=== PATIENT | male | born 1945 | race Caucasian/White ===

== ENCOUNTER 2017-06-30 09:26 | Emergency (ER) | payer OTHER ==
[~2017-06-30] VITALS: Ht 165.1 cm; Wt 87.1 kg
[2017-06-30 09:26] VITALS: BP_SYST 153
--- NOTE | 2017-06-30 09:26 | NUR ---
BROUGHT BACK TO BED #7 AND TRIAGED. REPORT GIVEN TO MARISELA
--- NOTE | 2017-06-30 09:40 | NUR ---
Pt complains of cough with no phlegm for the past 3 days. Pt complains of body aches and stomach pain. Pt denies fever, n/v, or diarrhea. Daughter at bedside translating for patient. No other injuries/complains per pt or noted.
--- NOTE | 2017-06-30 09:40 | NUR ---
Pt went to radiology in stable condition.
--- NOTE | 2017-06-30 09:45 | NUR ---
Pt returned from radiology in stable condition.
--- NOTE | 2017-06-30 10:19 | NUR ---
ER at bedside examining patient.
[2017-06-30] MEDS ORDERED: ALBUTEROL SULFATE 0.083% 2.5 MG/3 ML VIAL.NEB INH ONE (10:30)
[2017-06-30] MEDS ORDERED: LEVOFLOXACIN 500 MG TABLET PO ONE (10:30)
--- NOTE | 2017-06-30 10:30 | NUR ---
antibiotic was given PO, no noted adverse reaction, will continue to monitor.
[2017-06-30 11:04] VITALS: BP_SYST 135
--- NOTE | 2017-06-30 11:04 | NUR ---
Patient given written and verbal discharge instructions and verbalizes understanding. ER MD discussed with patient the results and treatment provided. Patient in stable condition. ID arm band removed. Rx of Cipro, Promethazine, Albuterol given. Patient educated on pain management and to follow up with PMD. Pain Scale 0. Opportunity for questions provided and answered.
== END 2017-06-30 11:04 | disposition home or self-care (01) ==
LOC: SED 09:26
DX: J40 Bronchitis, not specified as acute or chronic (principal); R10.9 Unspecified abdominal pain; E11.9 Type 2 diabetes mellitus without complications; I10 Essential (primary) hypertension
CPT/HCPCS: 71020-TC; 94640; 99284

== ENCOUNTER 2017-09-23 11:19 | Emergency (ER) | payer OTHER ==
[~2017-09-23] VITALS: Ht 165.1 cm; Wt 87.1 kg
[2017-09-23 11:24] VITALS: BP_SYST 128
[2017-09-23 11:40] VITALS: BP_SYST 137
== END 2017-09-23 11:40 | disposition home or self-care (01) ==
LOC: SED 11:19
DX: J02.8 Acute pharyngitis due to other specified organisms (principal); B96.89 Other specified bacterial agents as the cause of diseases classified elsewhere; E11.9 Type 2 diabetes mellitus without complications; I10 Essential (primary) hypertension; E78.00 Pure hypercholesterolemia, unspecified
CPT/HCPCS: 99283; J7030

== ENCOUNTER 2018-02-13 16:01 | Emergency (ER) | payer OTHER ==
[~2018-02-13] VITALS: Ht 160 cm; Wt 88.0 kg
[2018-02-13 16:09] VITALS: BP_SYST 114
[2018-02-13 18:00] VITALS: BP_SYST 112
== END 2018-02-13 18:00 | disposition home or self-care (01) ==
LOC: SED 16:01
DX: S16.1XXA Strain of muscle, fascia and tendon at neck level, initial encounter (principal); I10 Essential (primary) hypertension; E11.9 Type 2 diabetes mellitus without complications; E78.5 Hyperlipidemia, unspecified; M10.9 Gout, unspecified; X58.XXXA Exposure to other specified factors, initial encounter; Y93.89 Activity, other specified; Y92.89 Other specified places as the place of occurrence of the external cause; Y99.8 Other external cause status
CPT/HCPCS: 99283

== ENCOUNTER 2018-11-06 15:47 | Outpatient (CLI) | payer OTHER | END 2018-11-06 19:16 | disposition home or self-care (01) | LOC: SRD 15:47 | PROVIDERS: ATTEND Internal Medicine | DX: M17.12 Unilateral primary osteoarthritis, left knee (principal) | CPT/HCPCS: 73564 ==

== ENCOUNTER 2021-02-13 23:40 | Inpatient (IN) | payer OTHER ==
[~2021-02-13] VITALS: Ht 165.1 cm; Wt 88.5 kg
[2021-02-13 23:45] VITALS: BP_SYST 142
[2021-02-14 00:36] LABS: ANION GAP 8 (5-15); CALCIUM 8.5 mg/dL (8.4-11.0); CHLORIDE 101 mmol/L (98-107); CREATININE 1.62 mg/dL (0.55-1.30); GLUCOSE 224 mg/dL (70-99); SODIUM SERUM 134 mmol/L (136-145); UREA NITROGEN, BLOOD 25 mg/dL (8-21)
[2021-02-14 00:39] LABS: BASOPHILS # (AUTO) 0.1 K/uL (0.0-0.2); BASOPHILS % (AUTO) 0.6 % (0.0-2.0); EOSINOPHILS # (AUTO) 0.1 K/uL (0.0-0.4); EOSINOPHILS % (AUTO) 0.5 % (0.0-4.0); HEMATOCRIT 39.6 % (36-54); HEMOGLOBIN 13.2 g/dL (14.0-18.0); LYMPHOCYTES # (AUTO) 1.4 K/uL (1.0-5.5); LYMPHOCYTES % (AUTO) 13.8 % (20.5-51.5); MEAN CORPUSCULAR HEMOGLOBIN 31 pg (27-31); MEAN CORPUSCULAR HGB CONC 33 % (32-36); MEAN CORPUSCULAR VOLUME 92 fL (79.0-98.0); MONOCYTES # (AUTO) 1.4 K/uL (0.0-1.0); MONOCYTES % (AUTO) 13.2 % (1.7-9.3); NEUTROPHILS # (AUTO) 7.4 K/uL (1.8-7.7); NEUTROPHILS % (AUTO) 71.9 % (40.0-70.0); PLATELET COUNT (AUTO) 128 K/uL (130-430); RED CELL DISTRIBUTION WIDTH 14.6 % (9.0-15.0); WHITE BLOOD COUNT (AUTO) 10.3 K/uL (4.8-10.8)
[2021-02-14 00:44] LABS: ALANINE AMINOTRANSFERASE 41 U/L (12-78); ALBUMIN 3.4 g/dL (3.4-4.8); ASPARTATE AMINOTRANSFERASE 18 U/L (10-37); TOTAL BILIRUBIN 1.1 mg/dL (0.0-1.0)
[2021-02-14] MEDS ORDERED: IPRATROPIUM/ALBUTEROL SULFATE 3 ML AMPUL.NEB (DUONEB) INH ONE (02:00)
[2021-02-14] MEDS ORDERED: methylPREDNISolone SOD SUCC/PF 62.5 MG/ML VIAL IVP ONE (02:45)
[2021-02-14] MEDS ORDERED: NALOXONE HCL 0.4 MG/ML AMP (NARCAN) IVP PRN (08:30)
[2021-02-14] MEDS ORDERED: HYDROcodone/ACETAMIN 5-325 MG TAB (NORCO/ VICODIN) PO PRN (08:30)
[2021-02-14] MEDS ORDERED: ALBUTEROL SULFATE 0.083% 2.5 MG/3 ML VIAL.NEB INH PRN (08:30)
[2021-02-14 09:00] VITALS: BP_SYST 124
[2021-02-14 09:06] LABS: BASOPHILS % (AUTO) 0.2 % (0.0-2.0); HEMATOCRIT 40.3 % (36-54); HEMOGLOBIN 13.1 g/dL (14.0-18.0); LYMPHOCYTES # (AUTO) 1.3 K/uL (1.0-5.5); LYMPHOCYTES % (AUTO) 11.4 % (20.5-51.5); MEAN CORPUSCULAR HEMOGLOBIN 30 pg (27-31); MEAN CORPUSCULAR HGB CONC 33 % (32-36); MEAN CORPUSCULAR VOLUME 93 fL (79.0-98.0); MONOCYTES # (AUTO) 0.1 K/uL (0.0-1.0); MONOCYTES % (AUTO) 1.2 % (1.7-9.3); NEUTROPHILS # (AUTO) 10.1 K/uL (1.8-7.7); NEUTROPHILS % (AUTO) 87.2 % (40.0-70.0); PLATELET COUNT (AUTO) 150 K/uL (130-430); RED BLOOD CELL COUNT(AUTO) 4.35 MIL/uL (4.2-6.2); RED CELL DISTRIBUTION WIDTH 14.9 % (9.0-15.0); WHITE BLOOD COUNT (AUTO) 11.6 K/uL (4.8-10.8)
[2021-02-14 09:20] LABS: ALANINE AMINOTRANSFERASE 40 U/L (12-78); ALBUMIN 3.2 g/dL (3.4-4.8); ANION GAP 12 (5-15); ASPARTATE AMINOTRANSFERASE 20 U/L (10-37); CALCIUM 8.7 mg/dL (8.4-11.0); CHLORIDE 101 mmol/L (98-107); CREATININE 1.62 mg/dL (0.55-1.30); GLUCOSE 315 mg/dL (70-99); POTASSIUM 5.5 mmol/L (3.5-5.1); SODIUM SERUM 134 mmol/L (136-145); TOTAL BILIRUBIN 1.2 mg/dL (0.0-1.0); UREA NITROGEN, BLOOD 26 mg/dL (8-21)
[2021-02-14] MEDS ORDERED: GLUCOSE (DEXTROSE) ORAL GEL -Adults PO PRN (09:30)
[2021-02-14] MEDS ORDERED: D5W 1,000 ML IV PRN (09:30)
[2021-02-14] MEDS ORDERED: DEXTROSE 50%-WATER 50 ML DISP.SYRIN IVP PRN (09:30)
[2021-02-14 09:39] VITALS: BP_SYST 124
[2021-02-14] MEDS: cefTRIAXone 1 GM IVPB PREMIX 50 ML IV SCH (10:16)
[2021-02-14] MEDS: AZITHROMYCIN 500 MG in NS 250 ML IV SCH (10:16)
[2021-02-14] MEDS: ENOXAPARIN SODIUM 40 MG/0.4 ML SYRINGE SUBCUT SCH (10:19)
[2021-02-14] MEDS ORDERED: SIMV80TA88 PO (12:26)
[2021-02-14] MEDS ORDERED: DICY10SO PO (12:26)
[2021-02-14] MEDS ORDERED: SITA100T11 PO (12:26)
[2021-02-14] MEDS ORDERED: ALLO100T PO (12:26)
[2021-02-14] MEDS ORDERED: MONT10TA33 PO (12:26)
[2021-02-14] MEDS ORDERED: GLIP10TA21 PO (12:26)
[2021-02-14] MEDS ORDERED: METF-518 PO (12:26)
[2021-02-14] MEDS ORDERED: LISI40TA13 PO (12:26)
[2021-02-14] MEDS: INSULIN REGULAR, HUMAN 100 UNITS/ML, 10 ML VIAL (humuLIN R) SUBCUT PRN ×3 (12:32→20:38)
[2021-02-14 14:20] VITALS: BP_SYST 124
[2021-02-14 16:00] VITALS: BP_SYST 130
[2021-02-14] MEDS: NACL 0.9% 1,000 ML IV SCH (19:54)
[2021-02-14 20:05] VITALS: BP_SYST 124
[2021-02-14] MEDS: FAMOTIDINE PF 20 MG/2 ML VIAL IVP SCH (20:29)
[2021-02-14] MEDS: methylPREDNISolone SOD SUCC 40 MG/ML VIAL IVP SCH (20:29)
[2021-02-15] VITALS: BP_SYST 153
[2021-02-15] MEDS: INSULIN REGULAR, HUMAN 100 UNITS/ML, 10 ML VIAL (humuLIN R) SUBCUT PRN ×4 (06:01→20:57)
[2021-02-15 07:24] LABS: ALANINE AMINOTRANSFERASE 32 U/L (12-78); ALBUMIN 2.8 g/dL (3.4-4.8); ANION GAP 9 (5-15); ASPARTATE AMINOTRANSFERASE 14 U/L (10-37); CALCIUM 8.7 mg/dL (8.4-11.0); CHLORIDE 105 mmol/L (98-107); CREATININE 1.35 mg/dL (0.55-1.30); GLUCOSE 260 mg/dL (70-99); POTASSIUM 4.9 mmol/L (3.5-5.1); SODIUM SERUM 137 mmol/L (136-145); UREA NITROGEN, BLOOD 32 mg/dL (8-21)
[2021-02-15 07:26] LABS: BASOPHILS % (AUTO) 0.1 % (0.0-2.0); HEMATOCRIT 37.6 % (36-54); HEMOGLOBIN 12.3 g/dL (14.0-18.0); LYMPHOCYTES # (AUTO) 1.2 K/uL (1.0-5.5); LYMPHOCYTES % (AUTO) 8.7 % (20.5-51.5); MEAN CORPUSCULAR HEMOGLOBIN 30 pg (27-31); MEAN CORPUSCULAR HGB CONC 33 % (32-36); MEAN CORPUSCULAR VOLUME 92 fL (79.0-98.0); MONOCYTES # (AUTO) 0.8 K/uL (0.0-1.0); MONOCYTES % (AUTO) 5.4 % (1.7-9.3); NEUTROPHILS # (AUTO) 12.1 K/uL (1.8-7.7); NEUTROPHILS % (AUTO) 85.8 % (40.0-70.0); PLATELET COUNT (AUTO) 152 K/uL (130-430); RED BLOOD CELL COUNT(AUTO) 4.08 MIL/uL (4.2-6.2); RED CELL DISTRIBUTION WIDTH 14.7 % (9.0-15.0); WHITE BLOOD COUNT (AUTO) 14.1 K/uL (4.8-10.8)
[2021-02-15 07:46] LABS: TOTAL BILIRUBIN 0.5 mg/dL (0.0-1.0)
[2021-02-15 08:00] VITALS: BP_SYST 129
[2021-02-15] MEDS: methylPREDNISolone SOD SUCC 40 MG/ML VIAL IVP SCH ×2 (08:26→20:45)
[2021-02-15] MEDS: cefTRIAXone 1 GM IVPB PREMIX 50 ML IV SCH (08:26)
[2021-02-15] MEDS: ENOXAPARIN SODIUM 40 MG/0.4 ML SYRINGE SUBCUT SCH (08:29)
[2021-02-15] MEDS: AZITHROMYCIN 500 MG in NS 250 ML IV SCH (10:12)
[2021-02-15 12:00] VITALS: BP_SYST 125
[2021-02-15] MEDS: NACL 0.9% 1,000 ML IV SCH (14:47)
[2021-02-15 16:00] VITALS: BP_SYST 128
[2021-02-15 20:00] VITALS: BP_SYST 137
[2021-02-15] MEDS: FAMOTIDINE PF 20 MG/2 ML VIAL IVP SCH (20:45)
[2021-02-16 04:00] VITALS: BP_SYST 139
[2021-02-16] MEDS: INSULIN REGULAR, HUMAN 100 UNITS/ML, 10 ML VIAL (humuLIN R) SUBCUT PRN ×2 (06:00→12:27)
[2021-02-16] MEDS: cefTRIAXone 1 GM IVPB PREMIX 50 ML IV SCH (08:54)
[2021-02-16] MEDS: methylPREDNISolone SOD SUCC 40 MG/ML VIAL IVP SCH (08:54)
[2021-02-16] MEDS: ENOXAPARIN SODIUM 40 MG/0.4 ML SYRINGE SUBCUT SCH (08:57)
[2021-02-16] MEDS: AZITHROMYCIN 500 MG in NS 250 ML IV SCH (10:28)
[2021-02-16 12:14] VITALS: BP_SYST 128
[2021-02-16] MEDS ORDERED: ALBU2.5V7 INH (15:43)
[2021-02-16] MEDS ORDERED: MED4 PO (15:45)
[2021-02-16] MEDS ORDERED: ZIT250 PO (16:01)
[2021-02-16 16:19] VITALS: BP_SYST 148
[2021-02-16 17:02] VITALS: BP_SYST 148
== END 2021-02-16 17:45 | disposition home health service (06) | DRG 189 ==
LOC: SED 23:40 → STU 02-14 04:51
PROVIDERS: ADMIT Internal Medicine Hospice and Palliative Medicine; ATTEND Internal Medicine Hospice and Palliative Medicine
DX: J96.01 Acute respiratory failure with hypoxia (principal); E44.0 Moderate protein-calorie malnutrition; J44.1 Chronic obstructive pulmonary disease with (acute) exacerbation; J44.0 Chronic obstructive pulmonary disease with (acute) lower respiratory infection; M10.9 Gout, unspecified; I10 Essential (primary) hypertension; E11.9 Type 2 diabetes mellitus without complications; E78.5 Hyperlipidemia, unspecified; M19.90 Unspecified osteoarthritis, unspecified site; T38.0X5A Adverse effect of glucocorticoids and synthetic analogues, initial encounter; Z20.822 Contact with and (suspected) exposure to COVID-19; G47.33 Obstructive sleep apnea (adult) (pediatric); J20.9 Acute bronchitis, unspecified; Z83.3 Family history of diabetes mellitus; Y92.89 Other specified places as the place of occurrence of the external cause; Z68.32 Body mass index [BMI] 32.0-32.9, adult
CPT/HCPCS: 36415; 36600; 71045; 80053; 82803-TC; 82962; 83036; 83880; 84484; 85025; 85379; 93005; 93306; 94640; 96374; 99291; G0378; J0456; J0696; J1030; J1650; J1815; J2930; J3490; J7030; J7050

== ENCOUNTER 2023-10-02 18:59 | Emergency (ER) | payer OTHER ==
[~2023-10-02] VITALS: Ht 160 cm; Wt 80.7 kg
[~2023-10-02 18:59] MED LIST: ALBU2.5V7 INH; ALLO100T PO; DICY10SO PO; GLIP10TA21 PO; LISI40TA13 PO; MED4 PO; METF-518 PO; MONT-40 PO; SIMV80TA88 PO; SITA100T11 PO; ZIT250 PO
[2023-10-02 19:56] VITALS: BP_SYST 146; PULSE 85; RESP 18; TEMP 98; O2SAT 97
== END 2023-10-02 21:20 | disposition left against medical advice (07) ==
LOC: SED 18:59
DX: S00.83XA Contusion of other part of head, initial encounter (principal); S10.83XA Contusion of other specified part of neck, initial encounter; E11.9 Type 2 diabetes mellitus without complications; I10 Essential (primary) hypertension; Z79.899 Other long term (current) drug therapy; V49.40XA Driver injured in collision with unspecified motor vehicles in traffic accident, initial encounter; Y93.89 Activity, other specified; Y92.89 Other specified places as the place of occurrence of the external cause; Y99.8 Other external cause status
CPT/HCPCS: 70450-TC; 72125-TC; 76376; 99284

== ENCOUNTER 2023-10-12 12:17 | Inpatient (IN) | payer OTHER ==
[~2023-10-12] VITALS: Ht 167.6 cm; Wt 85.7 kg
[2023-10-12 12:26] VITALS: BP_SYST 94; PULSE 62; RESP 19; TEMP 98; O2SAT 95
[2023-10-12 13:54] LABS: BASOPHILS # (AUTO) 0.1 K/uL (0.0-0.2); BASOPHILS % (AUTO) 0.9 % (0.0-2.0); EOSINOPHILS # (AUTO) 0.1 K/uL (0.0-0.4); HEMATOCRIT 38.9 % (36-54); HEMOGLOBIN 12.5 g/dL (14.0-18.0); LYMPHOCYTES # (AUTO) 1.6 K/uL (1.0-5.5); LYMPHOCYTES % (AUTO) 21.9 % (20.5-51.5); MEAN CORPUSCULAR HEMOGLOBIN 30 pg (27-31); MEAN CORPUSCULAR HGB CONC 32 % (32-36); MEAN CORPUSCULAR VOLUME 94 fL (79.0-98.0); MONOCYTES # (AUTO) 0.8 K/uL (0.0-1.0); MONOCYTES % (AUTO) 10.4 % (1.7-9.3); NEUTROPHILS # (AUTO) 4.8 K/uL (1.8-7.7); NEUTROPHILS % (AUTO) 64.8 % (40.0-70.0); PLATELET COUNT (AUTO) 208 K/uL (130-430); RED BLOOD CELL COUNT(AUTO) 4.13 MIL/uL (4.2-6.2); RED CELL DISTRIBUTION WIDTH 14.1 % (9.0-15.0); WHITE BLOOD COUNT (AUTO) 7.4 K/uL (4.8-10.8)
[2023-10-12 14:05] LABS: ANION GAP 11 (5-15); CALCIUM 9.3 mg/dL (8.4-11.0); CARBON DIOXIDE 26 mmol/L (23-29); CHLORIDE 101 mmol/L (98-107); CREATININE 1.75 mg/dL (0.55-1.30); GLUCOSE 316 mg/dL (74-106); POTASSIUM 4.6 mmol/L (3.5-5.1); SODIUM SERUM 138 mmol/L (136-145); UREA NITROGEN, BLOOD 20 mg/dL (8-21)
[2023-10-12 14:06] LABS: INR 0.9 (0.80-1.20); PROTHROMBIN TIME 9.8 SECS (9.5-12.5)
[2023-10-12 14:21] LABS: ALANINE AMINOTRANSFERASE 117 U/L (12-78); ALBUMIN 3.5 g/dL (3.4-4.8); ASPARTATE AMINOTRANSFERASE 72 U/L (10-37); BILIRUBIN,DIRECT 0.3 mg/dL (0.0-0.3); CREATINE KINASE, TOTAL 1086 U/L (39-308); FREE T4 (FREE THYROXINE) 0.7 ng/dL (0.6-1.6); THYROID STIMULATING HORMONE 2.66 uIu/mL (0.34-4.82); TOTAL BILIRUBIN 0.8 mg/dL (0.0-1.0); TOTAL PROTEIN, SERUM 7.1 g/dL (6.4-8.3)
[2023-10-12 14:45] LABS: ACETONE, SERUM NEGATIVE (NEGATIVE)
[2023-10-12 14:52] LABS: CKMB RELATIVE INDEX 0.9 (0.0-2.9); CREATINE KINASE MB 9.4 ng/mL (0-3.6)
[2023-10-12] MEDS ORDERED: NACL 0.9% 1,000 ML IV ONE (15:00)
[2023-10-12] MEDS ORDERED: SODIUM BICARBONATE 8.4% JECT 50 MEQ/50 ML SYRINGE IVP ONE (15:00)
[2023-10-12] MEDS: NACL 0.9% 1,000 ML IV SCH ×2 (16:47→23:22)
[2023-10-12 16:56] LABS: BILIRUBIN,URINE NEGATIVE (NEGATIVE); BLOOD, URINE 3+ (NEGATIVE); COLOR,URINE YELLOW (YELLOW); GLUCOSE,URINE 3+ (NEGATIVE); KETONES,URINE NEGATIVE (NEGATIVE); LEUKOCYTE ESTERASE ,URINE NEGATIVE (NEGATIVE); NITRITE, URINE NEGATIVE (NEGATIVE); PH,URINE 7.5 (5.0-8.0); PROTEIN URINE 1+ (NEGATIVE)
[2023-10-12 17:08] LABS: CLARITY/URINE SLIGHTLY CLOUDY (CLEAR)
[2023-10-12 17:09] LABS: BACTERIA,URINE FEW /HPF (None Seen); WBC,URINE 0-3 /HPF (0-3)
[2023-10-12] MEDS ORDERED: DICYCLOMINE HCL 10 MG/5 ML SOLUTION PO SCH (20:45)
[2023-10-12] MEDS ORDERED: HYDROcodone/ACETAMIN 5-325 MG TAB (NORCO/ VICODIN) PO PRN (20:45)
[2023-10-12] MEDS ORDERED: ALBUTEROL SULFATE 0.083% 2.5 MG/3 ML VIAL.NEB INH PRN (20:45)
[2023-10-12] MEDS ORDERED: NALOXONE HCL 0.4 MG/ML AMP (NARCAN) IVP PRN ×2 (20:45)
[2023-10-12] MEDS ORDERED: IPRATROPIUM BROM 0.5 MG/2.5 ML VIAL.NEB (ATROVENT) INH PRN (20:45)
[2023-10-12] MEDS ORDERED: ONDANSETRON HCL 4 MG/2 ML VIAL IVP PRN (20:45)
[2023-10-12] MEDS ORDERED: LORazepam 2 MG/ML VIAL IVP PRN (20:45)
[2023-10-12] MEDS ORDERED: HYDROcodone/ACETAMIN 10-325 MG TAB PO PRN (20:45)
[2023-10-12] MEDS ORDERED: NACL 0.9% 1,000 ML IV SCH (20:45)
[2023-10-12] MEDS ORDERED: ACETAMINOPHEN 325 MG TABLET PO PRN (20:45)
[2023-10-12 21:15] VITALS: BP_SYST 109; PULSE 59; O2SAT 95
[2023-10-12] MEDS: SIMVASTATIN 40 MG TABLET PO SCH (23:22)
[2023-10-13] VITALS: BP_SYST 152; BP_SYST 155; PULSE 62; PULSE 79; RESP 18; RESP 20; TEMP 97.8; TEMP 98; O2SAT 95
[2023-10-13 00:19] VITALS: O2SAT 95
[2023-10-13] MEDS: INSULIN REGULAR, HUMAN 100 UNITS/ML, 3 ML VIAL (humuLIN R) SUBCUT PRN ×2 (06:11→11:51)
[2023-10-13 07:27] LABS: ANION GAP 10 (5-15); CALCIUM 9.3 mg/dL (8.4-11.0); CARBON DIOXIDE 26 mmol/L (23-29); CHLORIDE 106 mmol/L (98-107); CREATININE 1.41 mg/dL (0.55-1.30); GLUCOSE 146 mg/dL (74-106); POTASSIUM 4.5 mmol/L (3.5-5.1); SODIUM SERUM 142 mmol/L (136-145); UREA NITROGEN, BLOOD 18 mg/dL (8-21)
[2023-10-13 08:00] VITALS: BP_SYST 114; PULSE 53; RESP 17; TEMP 96.8; O2SAT 94
[2023-10-13 08:08] LABS: BASOPHILS % (AUTO) 0.5 % (0.0-2.0); EOSINOPHILS # (AUTO) 0.2 K/uL (0.0-0.4); HEMATOCRIT 39.9 % (36-54); LYMPHOCYTES # (AUTO) 1.9 K/uL (1.0-5.5); LYMPHOCYTES % (AUTO) 32.1 % (20.5-51.5); MEAN CORPUSCULAR HEMOGLOBIN 30 pg (27-31); MEAN CORPUSCULAR HGB CONC 33 % (32-36); MEAN CORPUSCULAR VOLUME 94 fL (79.0-98.0); MONOCYTES # (AUTO) 0.6 K/uL (0.0-1.0); MONOCYTES % (AUTO) 9.8 % (1.7-9.3); NEUTROPHILS # (AUTO) 3.2 K/uL (1.8-7.7); NEUTROPHILS % (AUTO) 53.6 % (40.0-70.0); PLATELET COUNT (AUTO) 183 K/uL (130-430); RED BLOOD CELL COUNT(AUTO) 4.27 MIL/uL (4.2-6.2); RED CELL DISTRIBUTION WIDTH 14.1 % (9.0-15.0)
[2023-10-13 08:26] LABS: CKMB RELATIVE INDEX 0.8 (0.0-2.9); CREATINE KINASE MB 9.4 ng/mL (0-3.6)
[2023-10-13] MEDS: glipiZIDE XL 5 MG TAB ( GLUCOTROL XL) PO SCH (08:45)
[2023-10-13] MEDS: ALLOPURINOL 100 MG TABLET (ZYLOPRIM) PO SCH (08:45)
[2023-10-13] MEDS: AZITHROMYCIN 250 MG TABLET PO SCH (08:45)
[2023-10-13] MEDS: NACL 0.9% 1,000 ML IV SCH ×2 (11:48→22:00)
[2023-10-13] MEDS: MONTELUKAST 10 MG TABLET PO SCH (17:50)
[2023-10-13 20:00] VITALS: BP_SYST 108; PULSE 65; RESP 18; TEMP 97.5; O2SAT 99
[2023-10-13] MEDS: SIMVASTATIN 40 MG TABLET PO SCH (21:34)
[2023-10-14] VITALS (8 sets, daily range): BP systolic 108–122; PULSE 50–68; RESP 16–19; TEMP 96.9–97.9; O2SAT 94–99
[2023-10-14] MEDS: NACL 0.9% 1,000 ML IV SCH ×3 (02:51→16:57)
[2023-10-14 06:54] LABS: ANION GAP 9 (5-15); CALCIUM 8.2 mg/dL (8.4-11.0); CARBON DIOXIDE 25 mmol/L (23-29); CHLORIDE 106 mmol/L (98-107); CREATININE 1.29 mg/dL (0.55-1.30); GLUCOSE 104 mg/dL (74-106); POTASSIUM 4.3 mmol/L (3.5-5.1); SODIUM SERUM 140 mmol/L (136-145); UREA NITROGEN, BLOOD 18 mg/dL (8-21)
[2023-10-14 07:32] LABS: CKMB RELATIVE INDEX 0.7 (0.0-2.9); CREATINE KINASE MB 8.4 ng/mL (0-3.6)
[2023-10-14 07:54] LABS: BASOPHILS % (AUTO) 0.3 % (0.0-2.0); EOSINOPHILS # (AUTO) 0.2 K/uL (0.0-0.4); EOSINOPHILS % (AUTO) 2.8 % (0.0-4.0); HEMATOCRIT 36.4 % (36-54); LYMPHOCYTES # (AUTO) 1.6 K/uL (1.0-5.5); LYMPHOCYTES % (AUTO) 26.4 % (20.5-51.5); MEAN CORPUSCULAR HEMOGLOBIN 31 pg (27-31); MEAN CORPUSCULAR HGB CONC 33 % (32-36); MEAN CORPUSCULAR VOLUME 93 fL (79.0-98.0); MONOCYTES # (AUTO) 0.6 K/uL (0.0-1.0); MONOCYTES % (AUTO) 9.5 % (1.7-9.3); NEUTROPHILS # (AUTO) 3.6 K/uL (1.8-7.7); PLATELET COUNT (AUTO) 180 K/uL (130-430); RED BLOOD CELL COUNT(AUTO) 3.92 MIL/uL (4.2-6.2)
[2023-10-14 08:00] LABS: WHITE BLOOD COUNT (AUTO) 5.9 K/uL (4.8-10.8)
[2023-10-14] MEDS: ALLOPURINOL 100 MG TABLET (ZYLOPRIM) PO SCH (08:58)
[2023-10-14] MEDS: glipiZIDE XL 5 MG TAB ( GLUCOTROL XL) PO SCH (08:58)
[2023-10-14] MEDS: AZITHROMYCIN 250 MG TABLET PO SCH (08:58)
[2023-10-14] MEDS: INSULIN REGULAR, HUMAN 100 UNITS/ML, 3 ML VIAL (humuLIN R) SUBCUT PRN ×2 (11:25→20:33)
[2023-10-14] MEDS: MONTELUKAST 10 MG TABLET PO SCH (17:00)
[2023-10-14] MEDS: SIMVASTATIN 40 MG TABLET PO SCH (20:27)
[2023-10-15] VITALS: BP_SYST 145; PULSE 53; RESP 18; TEMP 97.5; O2SAT 98
[2023-10-15] MEDS: NACL 0.9% 1,000 ML IV SCH ×2 (00:32→14:00)
[2023-10-15 05:30] LABS: BASOPHILS % (AUTO) 0.5 % (0.0-2.0); EOSINOPHILS # (AUTO) 0.1 K/uL (0.0-0.4); EOSINOPHILS % (AUTO) 2.1 % (0.0-4.0); HEMATOCRIT 36.2 % (36-54); LYMPHOCYTES # (AUTO) 1.4 K/uL (1.0-5.5); LYMPHOCYTES % (AUTO) 23.5 % (20.5-51.5); MEAN CORPUSCULAR HEMOGLOBIN 30 pg (27-31); MEAN CORPUSCULAR HGB CONC 33 % (32-36); MEAN CORPUSCULAR VOLUME 92 fL (79.0-98.0); MONOCYTES # (AUTO) 0.6 K/uL (0.0-1.0); MONOCYTES % (AUTO) 10.4 % (1.7-9.3); NEUTROPHILS # (AUTO) 3.8 K/uL (1.8-7.7); NEUTROPHILS % (AUTO) 63.5 % (40.0-70.0); PLATELET COUNT (AUTO) 192 K/uL (130-430); RED BLOOD CELL COUNT(AUTO) 3.93 MIL/uL (4.2-6.2); RED CELL DISTRIBUTION WIDTH 14.1 % (9.0-15.0); WHITE BLOOD COUNT (AUTO) 5.9 K/uL (4.8-10.8)
[2023-10-15 06:31] LABS: ALANINE AMINOTRANSFERASE 80 U/L (12-78); ANION GAP 10 (5-15); ASPARTATE AMINOTRANSFERASE 64 U/L (10-37); CALCIUM 8.9 mg/dL (8.4-11.0); CARBON DIOXIDE 24 mmol/L (23-29); CHLORIDE 105 mmol/L (98-107); GLUCOSE 119 mg/dL (74-106); SODIUM SERUM 139 mmol/L (136-145); TOTAL BILIRUBIN 0.7 mg/dL (0.0-1.0); TOTAL PROTEIN, SERUM 6.5 g/dL (6.4-8.3); UREA NITROGEN, BLOOD 19 mg/dL (8-21)
[2023-10-15 07:34] LABS: CKMB RELATIVE INDEX 0.8 (0.0-2.9); CREATINE KINASE MB 7.2 ng/mL (0-3.6)
[2023-10-15 08:00] VITALS: BP_SYST 142; PULSE 88; RESP 18; TEMP 97.6; O2SAT 97
[2023-10-15] MEDS: ALLOPURINOL 100 MG TABLET (ZYLOPRIM) PO SCH (08:46)
[2023-10-15] MEDS: AZITHROMYCIN 250 MG TABLET PO SCH (08:46)
[2023-10-15] MEDS: glipiZIDE XL 5 MG TAB ( GLUCOTROL XL) PO SCH (08:46)
[2023-10-15 11:01] VITALS: BP_SYST 144; PULSE 65; RESP 16; TEMP 96.7; O2SAT 97
[2023-10-15 15:19] VITALS: BP_SYST 130; PULSE 57; RESP 16; TEMP 97.5; O2SAT 100
[2023-10-15] MEDS: MONTELUKAST 10 MG TABLET PO SCH (17:14)
[2023-10-15] MEDS: INSULIN REGULAR, HUMAN 100 UNITS/ML, 3 ML VIAL (humuLIN R) SUBCUT PRN ×2 (17:17→21:39)
[2023-10-15 20:00] VITALS: BP_SYST 112; PULSE 61; RESP 18; TEMP 99.1; O2SAT 95
[2023-10-15] MEDS: SIMVASTATIN 40 MG TABLET PO SCH (21:35)
[2023-10-16] MEDS: NACL 0.9% 1,000 ML IV SCH (06:15)
[2023-10-16 08:00] VITALS: BP_SYST 116; PULSE 54; RESP 18; TEMP 97.5; O2SAT 94
[2023-10-16] MEDS: glipiZIDE XL 5 MG TAB ( GLUCOTROL XL) PO SCH (09:03)
[2023-10-16] MEDS: ALLOPURINOL 100 MG TABLET (ZYLOPRIM) PO SCH (09:03)
[2023-10-16] MEDS: AZITHROMYCIN 250 MG TABLET PO SCH (09:03)
[2023-10-16] MEDS: INSULIN REGULAR, HUMAN 100 UNITS/ML, 3 ML VIAL (humuLIN R) SUBCUT PRN (12:24)
== END 2023-10-16 14:25 | disposition home health service (06) | DRG 564 ==
LOC: SED 12:17 → SMU 14:54
PROVIDERS: ADMIT Specialist; ATTEND Specialist
DX: T79.6XXA Traumatic ischemia of muscle, initial encounter (principal); N17.0 Acute kidney failure with tubular necrosis; M43.16 Spondylolisthesis, lumbar region; Z96.652 Presence of left artificial knee joint; J45.909 Unspecified asthma, uncomplicated; M10.9 Gout, unspecified; E78.5 Hyperlipidemia, unspecified; R74.01 Elevation of levels of liver transaminase levels; E11.65 Type 2 diabetes mellitus with hyperglycemia; M51.36 Other intervertebral disc degeneration, lumbar region; I10 Essential (primary) hypertension; Z79.899 Other long term (current) drug therapy
CPT/HCPCS: 36415; 71045; 72131; 73564; 76376; 76700; 80048; 80053; 80076; 81000; 81001; 81015; 82009; 82550; 82553; 82962; 83605; 83735; 84100; 84439; 84443; 84484; 85025; 85610; 85730; 93005; 96374; 97110-GP; 97116-GP; 97530-GP; 99285; J1815; Q0144

== ENCOUNTER 2024-01-30 15:36 | Emergency (ER) | payer OTHER ==
[~2024-01-30] VITALS: Ht 160 cm; Wt 81.6 kg
[~2024-01-30 15:36] MED LIST changes: -SIMV80TA88 PO; -ZIT250 PO
[2024-01-30 15:53] VITALS: BP_SYST 111; PULSE 52; RESP 18; TEMP 97.5; O2SAT 100
[2024-01-30] MEDS ORDERED: KETOROLAC TROMETHAMINE 30 MG VIAL IVP ONE (16:15)
[2024-01-30] MEDS: KETOROLAC TROMETHAMINE 30 MG VIAL IM ONE (16:32)
[2024-01-30] MEDS ORDERED: PRED20TA PO (17:21)
[2024-01-30] MEDS ORDERED: IBUP-2018 PO (17:21)
[2024-01-30 18:00] VITALS: BP_SYST 124; PULSE 61; RESP 18; TEMP 97.5; O2SAT 100
== END 2024-01-30 18:00 | disposition home or self-care (01) ==
LOC: SED 15:36
DX: M26.602 Left temporomandibular joint disorder, unspecified (principal); J45.909 Unspecified asthma, uncomplicated; E11.9 Type 2 diabetes mellitus without complications; I10 Essential (primary) hypertension; Z79.899 Other long term (current) drug therapy
CPT/HCPCS: 70486; 96372; 99285; J1885

== ENCOUNTER 2024-03-01 11:05 | Emergency (ER) | payer OTHER ==
[~2024-03-01] VITALS: Ht 160 cm; Wt 81.6 kg
[~2024-03-01 11:05] MED LIST changes: +IBUP-2018 PO; +PRED20TA PO
[2024-03-01] MEDS ORDERED: TETRACAINE HCL/PF 0.5% OPHTHALMIC DROPS 4 ML OP ONE (11:17)
[2024-03-01 11:22] VITALS: BP_SYST 138; PULSE 62; TEMP 98.7; O2SAT 94
[2024-03-01 11:32] VITALS: BP_SYST 138; PULSE 62; TEMP 98.7; O2SAT 94
== END 2024-03-01 11:30 | disposition home or self-care (01) ==
LOC: SED 11:05
DX: H00.012 Hordeolum externum right lower eyelid (principal); J45.909 Unspecified asthma, uncomplicated; E11.9 Type 2 diabetes mellitus without complications; I10 Essential (primary) hypertension; Z79.899 Other long term (current) drug therapy
CPT/HCPCS: 99283

== ENCOUNTER 2024-05-09 23:09 | Inpatient (IN) | payer OTHER ==
[~2024-05-09] VITALS: Ht 160 cm; Wt 84.4 kg
[2024-05-09 23:16] VITALS: BP_SYST 139; PULSE 60; RESP 16; TEMP 96.7; O2SAT 94
[2024-05-09] MEDS: ALBUTEROL SULFATE 0.083% 2.5 MG/3 ML VIAL.NEB INH ONE (23:54)
[2024-05-10] VITALS (10 sets, daily range): BP systolic 107–133; PULSE 68–82; RESP 16–20; TEMP 97.3–98.5; O2SAT 92–99
[2024-05-10 00:07] LABS: BASOPHILS # (AUTO) 0.4 K/uL (0.0-0.2); BASOPHILS % (AUTO) 4.9 % (0.0-2.0); EOSINOPHILS # (AUTO) 0.1 K/uL (0.0-0.4); EOSINOPHILS % (AUTO) 1.8 % (0.0-4.0); HEMOGLOBIN 15.3 g/dL (14.0-18.0); LYMPHOCYTES # (AUTO) 1.8 K/uL (1.0-5.5); LYMPHOCYTES % (AUTO) 24.2 % (20.5-51.5); MEAN CORPUSCULAR HEMOGLOBIN 31 pg (27-31); MEAN CORPUSCULAR HGB CONC 34 % (32-36); MEAN CORPUSCULAR VOLUME 91 fL (79.0-98.0); MONOCYTES # (AUTO) 0.7 K/uL (0.0-1.0); MONOCYTES % (AUTO) 8.9 % (1.7-9.3); NEUTROPHILS # (AUTO) 4.4 K/uL (1.8-7.7); NEUTROPHILS % (AUTO) 60.2 % (40.0-70.0); PLATELET COUNT (AUTO) 217 K/uL (130-430); RED BLOOD CELL COUNT(AUTO) 4.97 MIL/uL (4.2-6.2); RED CELL DISTRIBUTION WIDTH 14.8 % (9.0-15.0); WHITE BLOOD COUNT (AUTO) 7.4 K/uL (4.8-10.8)
[2024-05-10 00:27] LABS: ALANINE AMINOTRANSFERASE 39 U/L (12-78); ALBUMIN 3.8 g/dL (3.4-4.8); ANION GAP 13 (5-15); ASPARTATE AMINOTRANSFERASE 28 U/L (10-37); CALCIUM 9.6 mg/dL (8.4-11.0); CARBON DIOXIDE 23 mmol/L (23-29); CHLORIDE 104 mmol/L (98-107); CREATININE 1.61 mg/dL (0.55-1.30); GLUCOSE 105 mg/dL (74-106); POTASSIUM 4.7 mmol/L (3.5-5.1); SODIUM SERUM 140 mmol/L (136-145); TOTAL BILIRUBIN 0.7 mg/dL (0.0-1.0); UREA NITROGEN, BLOOD 31 mg/dL (8-21)
[2024-05-10 00:29] LABS: BILIRUBIN,DIRECT 0.1 mg/dL (0.0-0.3)
[2024-05-10 00:36] LABS: CLARITY/URINE CLEAR (CLEAR); COLOR,URINE YELLOW (YELLOW); GLUCOSE,URINE 3+ (NEGATIVE); PROTEIN URINE NEGATIVE (NEGATIVE)
[2024-05-10 00:37] LABS: BILIRUBIN,URINE NEGATIVE (NEGATIVE); BLOOD, URINE NEGATIVE (NEGATIVE); KETONES,URINE TRACE (NEGATIVE); LEUKOCYTE ESTERASE ,URINE NEGATIVE (NEGATIVE); NITRITE, URINE NEGATIVE (NEGATIVE); UROBILINOGEN,URINE 0.2 (0.2-1.0)
[2024-05-10 00:38] LABS: BACTERIA,URINE RARE /HPF (None Seen)
[2024-05-10] MEDS: methylPREDNISolone SOD SUCC/PF 62.5 MG/ML VIAL IVP ONE ×2 (00:41→11:22)
[2024-05-10] MEDS: cefTRIAXone 1 GM IVPB PREMIX 50 ML IV ONE (00:41)
[2024-05-10] MEDS ORDERED: AZITHROMYCIN 500 MG/VIAL (ZITHROMAX) IV ONE (01:14)
[2024-05-10] MEDS: AZITHROMYCIN 500 MG in NS 250 ML IV ONE (01:29)
[2024-05-10] MEDS ORDERED: ALBUTEROL SULFATE 0.083% 2.5 MG/3 ML VIAL.NEB INH PRN (02:00)
[2024-05-10] MEDS ORDERED: DAPA10TA PO (02:13)
[2024-05-10] MEDS ORDERED: TERB250T89 PO (02:13)
[2024-05-10] MEDS ORDERED: AMLO5TAB92 PO (02:13)
[2024-05-10] MEDS ORDERED: ROSU40TA71 PO (02:13)
[2024-05-10] MEDS ORDERED: EZET-61 PO (02:13)
[2024-05-10] MEDS ORDERED: BUSP5TAB3 PO (02:13)
[2024-05-10] MEDS ORDERED: GABA300T28 PO (02:13)
[2024-05-10] MEDS ORDERED: FERR-69 PO (02:13)
[2024-05-10] MEDS ORDERED: ESCI20TA38 PO (02:13)
[2024-05-10] MEDS: MAGNESIUM SULFATE 50 ML IV ONE (02:42)
[2024-05-10] MEDS: NACL 0.9% 1,000 ML IV ONE ×3 (02:42→17:16)
[2024-05-10] MEDS: INSULIN REGULAR, HUMAN 100 UNITS/ML, 3 ML VIAL (humuLIN R) SUBCUT PRN ×2 (06:42→11:29)
[2024-05-10 07:39] LABS: ALANINE AMINOTRANSFERASE 31 U/L (12-78); ALBUMIN 3.3 g/dL (3.4-4.8); ANION GAP 11 (5-15); ASPARTATE AMINOTRANSFERASE 16 U/L (10-37); CARBON DIOXIDE 23 mmol/L (23-29); CHLORIDE 102 mmol/L (98-107); CREATININE 1.48 mg/dL (0.55-1.30); GLUCOSE 219 mg/dL (74-106); POTASSIUM 5.3 mmol/L (3.5-5.1); SODIUM SERUM 136 mmol/L (136-145); TOTAL BILIRUBIN 0.7 mg/dL (0.0-1.0); UREA NITROGEN, BLOOD 34 mg/dL (8-21)
[2024-05-10 08:00] LABS: BASOPHILS % (AUTO) 0.2 % (0.0-2.0); HEMATOCRIT 41.3 % (36-54); HEMOGLOBIN 14.1 g/dL (14.0-18.0); LYMPHOCYTES # (AUTO) 1.4 K/uL (1.0-5.5); LYMPHOCYTES % (AUTO) 15.4 % (20.5-51.5); MEAN CORPUSCULAR HEMOGLOBIN 31 pg (27-31); MEAN CORPUSCULAR HGB CONC 34 % (32-36); MEAN CORPUSCULAR VOLUME 91 fL (79.0-98.0); MONOCYTES # (AUTO) 0.1 K/uL (0.0-1.0); MONOCYTES % (AUTO) 0.8 % (1.7-9.3); NEUTROPHILS # (AUTO) 7.6 K/uL (1.8-7.7); NEUTROPHILS % (AUTO) 83.6 % (40.0-70.0); PLATELET COUNT (AUTO) 208 K/uL (130-430); RED BLOOD CELL COUNT(AUTO) 4.55 MIL/uL (4.2-6.2); RED CELL DISTRIBUTION WIDTH 14.6 % (9.0-15.0)
[2024-05-10] MEDS ORDERED: GLUCOSE (DEXTROSE) ORAL GEL -Adults PO PRN (10:15)
[2024-05-10] MEDS ORDERED: DEXTROSE 50% JECT 50 ML DISP.SYRIN IVP PRN (10:15)
[2024-05-10] MEDS: amLODIPine BESYLATE 5 MG TABLET PO ONE (11:23)
[2024-05-10] MEDS: MONTELUKAST 10 MG TABLET PO ONE (11:24)
[2024-05-10] MEDS: ALLOPURINOL 100 MG TABLET (ZYLOPRIM) PO ONE (11:24)
[2024-05-10] MEDS: methylPREDNISolone SOD SUCC/PF 62.5 MG/ML VIAL IVP SCH (17:15)
[2024-05-10] MEDS: MONTELUKAST 10 MG TABLET PO SCH (17:16)
[2024-05-10] MEDS: ALBUTEROL SULFATE 0.083% 2.5 MG/3 ML VIAL.NEB INH SCH (19:12)
[2024-05-10] MEDS: AZITHROMYCIN 500 MG in NS 250 ML IV SCH (21:03)
[2024-05-11] VITALS (10 sets, daily range): BP systolic 94–119; PULSE 57–76; RESP 18–24; TEMP 96.8–97.9; O2SAT 94–98
[2024-05-11 05:14] LABS: HEMATOCRIT 38.1 % (36-54); HEMOGLOBIN 12.7 g/dL (14.0-18.0); LYMPHOCYTES # (AUTO) 1.1 K/uL (1.0-5.5); LYMPHOCYTES % (AUTO) 8.4 % (20.5-51.5); MEAN CORPUSCULAR HEMOGLOBIN 30 pg (27-31); MEAN CORPUSCULAR HGB CONC 33 % (32-36); MEAN CORPUSCULAR VOLUME 90 fL (79.0-98.0); MONOCYTES # (AUTO) 0.3 K/uL (0.0-1.0); MONOCYTES % (AUTO) 2.2 % (1.7-9.3); NEUTROPHILS # (AUTO) 11.7 K/uL (1.8-7.7); NEUTROPHILS % (AUTO) 89.4 % (40.0-70.0); PLATELET COUNT (AUTO) 202 K/uL (130-430); RED BLOOD CELL COUNT(AUTO) 4.22 MIL/uL (4.2-6.2); RED CELL DISTRIBUTION WIDTH 14.6 % (9.0-15.0); WHITE BLOOD COUNT (AUTO) 13.1 K/uL (4.8-10.8)
[2024-05-11 05:51] LABS: ALANINE AMINOTRANSFERASE 39 U/L (12-78); ALBUMIN 3.1 g/dL (3.4-4.8); ANION GAP 7 (5-15); ASPARTATE AMINOTRANSFERASE 19 U/L (10-37); CALCIUM 8.4 mg/dL (8.4-11.0); CARBON DIOXIDE 23 mmol/L (23-29); CHLORIDE 104 mmol/L (98-107); CREATININE 1.33 mg/dL (0.55-1.30); GLUCOSE 209 mg/dL (74-106); POTASSIUM 4.6 mmol/L (3.5-5.1); SODIUM SERUM 134 mmol/L (136-145); TOTAL BILIRUBIN 0.5 mg/dL (0.0-1.0); TOTAL PROTEIN, SERUM 6.6 g/dL (6.4-8.3); UREA NITROGEN, BLOOD 34 mg/dL (8-21)
[2024-05-11] MEDS: amLODIPine BESYLATE 5 MG TABLET PO SCH (08:53)
[2024-05-11] MEDS: ALLOPURINOL 100 MG TABLET (ZYLOPRIM) PO SCH (08:54)
[2024-05-11] MEDS: methylPREDNISolone SOD SUCC/PF 62.5 MG/ML VIAL IVP ONE (12:32)
[2024-05-11] MEDS: INSULIN GLARGINE 100 UNITS/ML, 10 ML VIAL SUBCUT SCH (21:00)
[2024-05-11] MEDS: methylPREDNISolone SOD SUCC/PF 62.5 MG/ML VIAL IVP SCH (21:28)
[2024-05-11] MEDS: clonazePAM 0.5 MG TABLET PO SCH (23:50)
[2024-05-12] VITALS (8 sets, daily range): BP systolic 121–123; PULSE 54–62; RESP 14–20; TEMP 96.1–97.8; O2SAT 94–99
[2024-05-12 06:09] LABS: BASOPHILS % (AUTO) 0.1 % (0.0-2.0); HEMATOCRIT 38.3 % (36-54); HEMOGLOBIN 12.5 g/dL (14.0-18.0); LYMPHOCYTES # (AUTO) 1.1 K/uL (1.0-5.5); LYMPHOCYTES % (AUTO) 8.3 % (20.5-51.5); MEAN CORPUSCULAR HEMOGLOBIN 30 pg (27-31); MEAN CORPUSCULAR HGB CONC 33 % (32-36); MEAN CORPUSCULAR VOLUME 90 fL (79.0-98.0); MONOCYTES # (AUTO) 0.3 K/uL (0.0-1.0); MONOCYTES % (AUTO) 2.2 % (1.7-9.3); NEUTROPHILS # (AUTO) 11.7 K/uL (1.8-7.7); NEUTROPHILS % (AUTO) 89.4 % (40.0-70.0); PLATELET COUNT (AUTO) 217 K/uL (130-430); RED BLOOD CELL COUNT(AUTO) 4.24 MIL/uL (4.2-6.2); RED CELL DISTRIBUTION WIDTH 14.8 % (9.0-15.0); WHITE BLOOD COUNT (AUTO) 13.1 K/uL (4.8-10.8)
[2024-05-12 06:28] LABS: ALANINE AMINOTRANSFERASE 31 U/L (12-78); ALBUMIN 3.1 g/dL (3.4-4.8); ANION GAP 10 (5-15); ASPARTATE AMINOTRANSFERASE 10 U/L (10-37); CALCIUM 8.4 mg/dL (8.4-11.0); CARBON DIOXIDE 22 mmol/L (23-29); CHLORIDE 105 mmol/L (98-107); GLUCOSE 193 mg/dL (74-106); POTASSIUM 4.4 mmol/L (3.5-5.1); SODIUM SERUM 137 mmol/L (136-145); TOTAL BILIRUBIN 0.4 mg/dL (0.0-1.0); TOTAL PROTEIN, SERUM 6.7 g/dL (6.4-8.3); UREA NITROGEN, BLOOD 35 mg/dL (8-21)
[2024-05-12] MEDS ORDERED: PRED2.5T4 PO (13:08)
== END 2024-05-12 15:20 | disposition home health service (06) | DRG 189 ==
LOC: SED 23:09 → STU 05-10 01:51 → SMU 05-10 23:06
PROVIDERS: ADMIT Family Medicine; ATTEND Family Medicine
DX: J96.01 Acute respiratory failure with hypoxia (principal); N17.9 Acute kidney failure, unspecified; J44.1 Chronic obstructive pulmonary disease with (acute) exacerbation; E87.20 Acidosis, unspecified; E11.65 Type 2 diabetes mellitus with hyperglycemia; E78.5 Hyperlipidemia, unspecified; E66.01 Morbid (severe) obesity due to excess calories; E11.22 Type 2 diabetes mellitus with diabetic chronic kidney disease; I12.9 Hypertensive chronic kidney disease with stage 1 through stage 4 chronic kidney disease, or unspecified chronic kidney disease; N18.31 Chronic kidney disease, stage 3a; Z79.899 Other long term (current) drug therapy; Z79.84 Long term (current) use of oral hypoglycemic drugs; Z91.199 Patient's noncompliance with other medical treatment and regimen due to unspecified reason; Z68.32 Body mass index [BMI] 32.0-32.9, adult
CPT/HCPCS: 36415; 71045; 80048; 80053; 80076; 81000; 81001; 81015; 82948; 83037; 83605; 84484; 85025; 87040; 93005; 94640; 94664; 94760; 97116-GP; 97163-GP; 99291; J0456; J0696; J1815; J2930; J3475; J7050